=== PATIENT | female | born 1985 | race Caucasian/White ===

== ENCOUNTER 2017-07-27 05:16 | Day surgery (SDC) | payer OTHER ==
--- NOTE | 2017-07-24 12:43 | PDGENHP ---
History and Physical History and Physical: Assessment and Plan: 1. Endometriosis Acacia's symptoms are consistent with persistent endometriosis. She has failed medical management. We reviewed all conservative and surgical options. At the end of our discussion she is interested in scheduling robotic excision of endometriosis. 2. Pelvic pain in female 3. Dysmenorrhea Subjective: Patient ID: Acacia Moore is a 31 y.o. female who [facility] to [facility] for endometriosis. YOSHI Roger is a 31-year-old 0 woman. She has a long history of dysmenorrhea. At age 14 she was diagnosed clinically as having endometriosis. She underwent a laparoscopy at age 19 which found endometriosis. She then tried multiple control pills hormones and pain pills without much success. She underwent a 7 second laparoscopy in 2012 and then had a third laparoscopy with Dr. Real in January 2015. She thinks she has intraoperative photos from that surgery. She did not find it provided significant pain relief. She thought she was told she had some endometriosis on the surface of the rectum. Her cycles are irregular anywhere from 2-8 weeks. She will bleed 8-9 days all of which are heavier having to change a tampon about every 4 hours. She has daily left lower quadrant pain which waxes and wanes. The pain will intensify about 1 week before starting her menses. It will radiate down her thighs and low back. It eases up at the end of her bleeding. She also has occasional left chest pain which seems to be worse with her menses. She has deep dyschezia. She has never been sexually active. She has tried Lupron from September 2015 until March 2016 with no benefit. She is extremely tired of the pain and how it interferes with her life. She lives in [place] and works as well as attends [employer]. She will try to locate and forward a copy of her intraoperative photos. PastMedicalHistory Past Medical History: Diagnosis Date Endometriosis HTN (hypertension) Hypercholesteremia PastSurgicalHistory Past Surgical History: Procedure Laterality Date KNEE SURGERY PELVIC LAPAROSCOPY 2002, 2010, 2016 ablation of endometriosis CURRENT MEDICATIONS: Current Outpatient Prescriptions Medication Sig BOOSTRIX TDAP syringe ADM 0.5ML IM UTD fenofibrate (TRICOR) 145 mg tablet Take 1 tablet by mouth daily (with breakfast). FLUVIRIN [id number], PF, 45 mcg (15 mcg x 3)/0.5 mL Syrg ADM 0.5ML IM UTD metFORMIN (GLUCOPHAGE) 500 mg tablet Take 1 tablet by mouth daily (with breakfast). oxyCODONE-acetaminophen (PERCOCET) 5-325 mg tab Take 1 tablet by mouth every 4 hours as needed (endometriosis). This med has acetaminophen (APAP). traMADol (ULTRAM) 50 mg tablet Take 50 mg by mouth. No current facility-administered medications for this visit. ALLERGIES: Patient has no known allergies. I have reviewed, verified and agree with the past medical, surgical, , family, social and ROS history as documented by the RN today. Objective: Vital Signs: Visit Vitals BP 118/72 Pulse 71 Temp 36.6 C (97.8 F) Resp 16 Ht 1.73 m (5' 8.11") Wt (!) 116.8 kg (257 lb 9.6 oz) LMP 03/04/2017 SpO2 98% BMI 39.04 kg/m Physical Exam Gen: This is an alert, well developed woman in no distress. Neuro: She moves all extremities. Psych: She is appropriate, oriented, with normal affect. Neck: No thyroid enlargement, adenopathy, or tenderness. Lungs: Clear to ascultation, no wheezes or rales. Heart: Regular rate and rhythm without obvious murmurs. Abdomen: Soft, non-tender, without guarding, rebound, or masses. Extremities: No edema or cyanosis. Pelvic: Normal external genitalia. Non-gaping introitus, vagina without discharge, adequately estrogenized, no significant prolapse. Cervix without lesions or discharge. Uterus normal sized, mobile, non-tender. Adnexa non- tender without enlargement. Has tenderness surrounding the cervix especially posteriorly. The posterior cul-de-sac is exquisitely tender as well as the uterosacral ligaments. DATA: I have reviewed the pertinent medical records. PELVIC ULTRASOUND Indication: Pelvic pain and endometriosis. Findings: The uterus is anterior and measures 9.3 x 5.0 x 5.2 cm. The endometrium measures 8 mm. No uterine abnormalities are seen. The right ovary measures 3.4 x 2.8 cm. The left ovary measures 2.9 x 1.9 cm. The right ovary appears to be adherent to the posterior lateral aspect of the uterus and the right sidewall. There is a suggestion of the left ovary adherent to the left sidewall. The uterus is free of the rectum. Impression: Possible adhesive disease of both adnexa. TIME/COMMUNICATION: I personally spent a total of 50 minutes. Of that 35 minutes was counseling/ coordination of patient's care. See my note above for details. Isidro Ramos MD Board Certified Female Pelvic Medicine and Reconstructive Surgery Director of Minimally Invasive Gynecologic Surgery, [facility] Surgeon in Minimally Invasive Gynecologic Surgery [facility] Surgeon in Robotic Surgery
[2017-07-27] MEDS ORDERED: GABAPENTIN 300 MG CAP PO ONE (05:24)
[2017-07-27] MEDS ORDERED: ACETAMINOPHEN 500 MG TAB PO ONE (05:24)
[2017-07-27] MEDS ORDERED: PHENAZOPYRIDINE HCL 200 MG TAB PO ONE (05:24)
[2017-07-27] MEDS ORDERED: ceFAZolin 2 GM/SWFI 2 GM/20 ML SYR IVP ONE (05:24)
[2017-07-27] MEDS ORDERED: LR 1,000 ML IV ONE (05:25)
[2017-07-27] MEDS ORDERED: LIDOCAINE 1% 2 ML INJ ID PRN (05:25)
[2017-07-27] MEDS ORDERED: MIDAZOLAM 2 MG/2 ML VIAL IVP ONE (07:05)
--- NOTE | 2017-07-27 07:05 | PDANEPAE ---
ANE Past Medical History - Cardiovascular History Hx Hypertension: No Hx Arrhythmias: No Hx Chest Pain: No Hx Coronary Artery / Peripheral Vascular Disease: No Hx CHF / Valvular Disease: No Hx Palpitations: No Cardiovascular History Comment: PREV TREATMENT FOR HTN NO MEDS FOR 1-2 YRS. ELEVATED CHOLESTEROL - Pulmonary History Hx COPD: No Hx Asthma/Reactive Airway Disease: No Hx Recent Upper Respiratory Infection: No Hx Oxygen in Use at Home: No Hx Sleep Apnea: No Sleep Apnea Screening Result - Last Documented: Negative - Neurologic History Hx Cerebrovascular Accident: No Hx Seizures: No Hx Dementia: No - Endocrine History Hx Diabetes: No Obesity: severe - Renal History Hx Renal Disorders: No - Liver History Hx Hepatic Disorders: No - Neurological & Psychiatric Hx Hx Neurological and Psychiatric Disorders: No - Cancer History Hx Cancer: No - Congenital Disorder History Hx Congenital Disorders: No - GI History Hx Gastrointestinal Disorders: No - Chronic Pain History Chronic Pain: Yes (PELVIC REGION WORSE ON LT,LOWER BACK) - Surgical History Prior Surgeries: RT KNEE LATERAL RELEASE. ENDOMETROSIS X3 MOST RECENT 2015. WISDOM TEETH ANE Review of Systems Review of Systems: - Exercise capacity METS (RN): 4 METS ANE Patient History - Allergies Allergies/Adverse Reactions: No Known Allergies Allergy (Unverified 07/08/17 14:22) - Home Medications Home Medications: FENOFIBRATE DAILY 07/08/17 [Last Taken 07/26/17 09:00] Herbals/Supplements -Info Only DAILY 07/08/17 [Last Taken 06/27/17] Ibuprofen PRN 07/08/17 [Last Taken Unknown] Percocet 5-325 mg Tablet PRN 07/08/17 [Last Taken 07/26/17 09:00] - NPO status NPO Since - Liquids (Date): 07/27/17 NPO Since - Liquids (Time): 01:00 NPO Since - Solids (Date): 07/26/17 NPO Since - Solids (Time): 22:00 - Smoking Hx Smoking Status: Former smoker ANE Labs/Vital Signs - Vital Signs Blood Pressure: 126/66 Heart Rate: 66 Respiratory Rate: 16 O2 Sat (%): 97 Height: 170.18 cm Weight: 115.666 kg ANE Physical Exam - Airway Neck exam: decreased ROM Mallampati Score: Class 1 Mouth exam: normal dental/mouth exam - Pulmonary Pulmonary: no respiratory distress - Cardiovascular Cardiovascular: regular rate and rhythym - ASA Status ASA Status: II ANE Anesthesia Plan Anesthesia Plan: general endotracheal anesthesia
--- NOTE | 2017-07-27 07:07 | PDHPUP ---
History & Physical Update H&P update statement: This history and physical update is based on an assessment of the patient which was completed after admission or registration (within 24 hours), but prior to the surgery/procedure. H&P update: H&P reviewed & patient examined, no change in patient's condition since H&P completed
[2017-07-27] MEDS ORDERED: SCOPOLAMINE HYDROBROMIDE 1 MG/3 DAYS PATCH TD SCH (07:15)
[2017-07-27] MEDS ORDERED: PROPOFOL/EMULSION 500 MG/50 ML BOTTLE IV ONE (07:18)
[2017-07-27] MEDS ORDERED: ONDANSETRON 4 MG/2 ML VIAL ONE (07:19)
[2017-07-27] MEDS ORDERED: fentaNYL 250 MCG/5 ML INJ ONE (07:19)
[2017-07-27] MEDS ORDERED: DEXAMETHASONE 4 MG/ML VIAL ONE (07:19)
[2017-07-27] MEDS ORDERED: LIDOCAINE 2% 5 ML SDV ONE (07:19)
[2017-07-27] MEDS ORDERED: BUPIVACAINE 0.5% 30 ML SDV ONE (07:37)
[2017-07-27] MEDS ORDERED: GLYCOPYRROLATE 0.2 MG/1 ML VIAL ONE ×2 (08:18→08:20)
[2017-07-27] MEDS ORDERED: KETOROLAC 30 MG/1 ML SDV ONE (09:11)
[2017-07-27] MEDS ORDERED: SUGAMMADEX SODIUM 200 MG/2 ML VIAL IVP ONE (09:11)
--- NOTE | 2017-07-27 09:28 | POSTOPPROG ---
Post Op Note Date of Operation: 07/27/17 Surgeon: Isidro Ramos Chemical [employer] Helper: Swetha Shin Anesthesia: GET(General Endotracheal) Pre-op Diagnosis: Endometriosis, pelvic pain Post-op Diagnosis: same Procedure: robotic excision of endo, bilat ureterolysis and ovarian pexy Findings: endo Inf/Abcess present in the surg proc area at time of surgery?: No EBL: Minimal Complications: None Specimen(s): pelvic peritoneum with endo
[2017-07-27] MEDS ORDERED: LR 500 ML IV PRN (09:34)
[2017-07-27] MEDS ORDERED: DIAZEPAM 5 MG/ML 1 ML SYR IVP PRN (09:34)
[2017-07-27] MEDS ORDERED: PROMETHAZINE HCL 25 MG/ML INJ IVP PRN (09:34)
[2017-07-27] MEDS ORDERED: NALOXONE HCL 0.4 MG/ML INJ IVP PRN (09:34)
[2017-07-27] MEDS ORDERED: LABETALOL HCL 5 MG/ML 20 ML MDV IVP PRN (09:34)
--- NOTE | 2017-07-27 09:34 | POSTANESTH ---
Post Anesthetic Evaluation Cardiovascular Status: Normal, Stable Respiratory Status: Normal, Stable Level of Consciousness/Mental Status: Can Participate in Eval Pain Control: Adequate, Prn Tx Ordered Nausea/Vomiting Control: Adequate, Prn Tx Ordered Complications Possibly Related to Anesthesia: None Noted
[2017-07-27] MEDS ORDERED: fentaNYL 100 MCG/2 ML INJ ONE (09:35)
[2017-07-27] MEDS: fentaNYL 100 MCG/2 ML INJ IVP PRN ×2 (09:39→09:45)
[2017-07-27] MEDS ORDERED: DIAZEPAM 5 MG/ML 1 ML SYR ONE (10:03)
--- NOTE | 2017-07-27 10:09 | GOP ---
[f rep st] OPERATIVE REPORT DATE OF OPERATION: 07/27/2017 SURGEON: Isidro Ramos MD SENIOR STAFF SPECIALIZED EMPLOYMENT: Swetha Shin CFA. ANESTHESIA: General. PREOPERATIVE DIAGNOSIS: 1. Endometriosis. 2. Dysmenorrhea. 3. Cyclic pelvic pain. POSTOPERATIVE DIAGNOSIS: 1. Endometriosis. 2. Dysmenorrhea. 3. Cyclic pelvic pain. PROCEDURE PERFORMED: 1. Robotic excision of extensive endometriosis and anterior, posterior cul-de-sac and bilateral ovar caryn fossas. 2. Bilateral ureterolysis. 3. Partial right oophorectomy. 4. Bilateral ovariopexy. 5. Insertion of Mirena intrauterine device. FINDINGS: SPECIMENS: 1. Pelvic peritoneum with endometriosis. 1. Portion of right ovary. 2. ESTIMATED BLOOD LOSS: Scant. DESCRIPTION OF PROCEDURE: The patient was taken to the operating room where she was identified. Gen eral anesthesia was administered and found to be adequate. She was placed in the lithotomy position and prepared and draped in normal sterile fashion. A Barber catheter was placed in her bladder. A Hu lka tenaculum was then placed. A 1 cm infraumbilical incision was made through her prior surgical scar. The Veress needle with the CO2 gas flowing was advanced into the peritoneal cavity. The abdomen was then insufflated with carbo n dioxide gas. The 12 mm trocar followed by the laparoscope was then inserted. The upper abdomen wa s unremarkable. There was no evidence of endometriosis on diaphragm, stomach, liver, or gallbladder. Two lateral ports were placed, 1 on the right and 1 on the left under direct visualization. She th en was placed in Trendelenburg position and the da Natacha robot docked on the left side. The instrume nts were then brought into the abdominal cavity under direct visualization. She was found to have several vesicular lesions of endometriosis in the anterior cul-de-sac as well a s on both ovaries, and the posterior aspect of the uterus. She had these as well as white and red en dometriosis in the posterior cul-de-sac along both uterosacral ligaments, and overlying both ovarian fossas. The lesions on both ovaries were treated. The anterior cul-de-sac peritoneum was excised. A bilater al ovariopexy was then performed due to the cyclic pelvic pain. The ovaries were attached to the ips ilateral round ligaments near the internal inguinal rings. The entire posterior cul-de-sac peritoneu m from the distal rectum up to the cervix and laterally to the uterosacral ligaments was completely e xcised. A bilateral ureterolysis was required to safely remove the peritoneum endometriosis overlyin g both ureters. The peritoneum at the pelvic brims was incised. The ureters were gently dissected f ree and lateralized from the pelvic brim all the way down to where they crossed underneath the uterin e arteries. The entire ovarian fossa peritoneum from the ovaries anteriorly to the rectum posteriorl y and distally to include the uterosacral ligaments and lateral aspects of the cervix was then comple tely excised. The posterior cervix serosa with endometriosis was then completely excised. The pelvi s was then copiously irrigated with sterile saline, and hemostasis was present. The patient had a mo re concentrated area of endometriosis on the right ovary. The superficial aspect of the lateral aspe ct of the right ovary was excised and sent to Pathology for permanent section. Two sheets of Interce ed were placed in the lateral posterior pelvis. The robot was then undocked. The fascia was closed with 0 Vicryl, and skin with 4-0 Monocryl and surgical adhesive. A Mirena IUD was then advanced through the cervix into the uterine cavity. The string was trimmed to 3 cm. Anesthesia was reversed. The patient taken to PACU awake, in stable condition. COMPLICATIONS: None. DISPOSITION: Patient stable to PACU. /[id number]/MODL
[2017-07-27 10:30] VITALS: BP 123/91
[2017-07-27] MEDS ORDERED: HYDROCODONE/APAP 5/325 TAB ONE ×2 (10:34→11:19)
[2017-07-27] MEDS: HYDROCODONE/APAP 5/325 TAB PO PRN ×2 (10:35→11:21)
[2017-07-30] MEDS ORDERED: PATCH REMOVAL 1 EA PATCH TD SCH (07:05)
== END 2017-07-27 12:07 | disposition home or self-care (01) ==
LOC: FSGY 05:16
PROVIDERS: ATTEND Obstetrics & Gynecology
DX: N80.3 Endometriosis of pelvic peritoneum (principal); N80.1 Endometriosis of ovary; R10.2 Pelvic and perineal pain; N94.5 Secondary dysmenorrhea; I10 Essential (primary) hypertension; E78.00 Pure hypercholesterolemia, unspecified
CPT/HCPCS: 58300; 58661; C1765; J0690; J1100; J1885; J2250; J2405; J2704; J3010; J3360